=== PATIENT | male | born 1955 | race Hispanic/Latino ===

== ENCOUNTER 2018-04-21 07:21 | Emergency (ER) | payer MEDICARE, OTHER ==
[2018-04-21] MEDS ORDERED: Sodium Chloride 0.9% 1,000 ML IV STA (07:36)
--- NOTE | 2018-04-21 07:39 | ED PDOC ---
HPI: Male Pain Time Seen by Provider: 04/21/18 07:31 History Per: Patient Onset/Duration Of Symptoms: Mins (20) Current Symptoms Are (Timing): Still Present Severity: Moderate Pain Scale Rating Of: 3 Quality Of Discomfort: Aching Associated Symptoms: Nausea. denies: Fever, Vomiting, Diarrhea, Urinary Symptoms Alleviating Factors: None Additional Complaint(s): Left flank pain x 20 min [employer] ED. Denies dysuria or hematuria. No fever. Mild nausea. No vomiting. Previous h/o kidney stone. Past Medical History Vital Signs: Last Vital Signs Temp 98.0 F 04/21/18 07:31 Pulse 76 04/21/18 07:31 Resp 20 04/21/18 07:31 BP 154/89 H 04/21/18 07:31 Pulse Ox 97 04/21/18 07:31 - Medical History PMH: Back Problems, Kidney Stones - Family History Family History: States: Unknown Family Hx - Home Medications Home Medications: Ambulatory Orders Medication Instructions Recorded Sulfamethoxazole/Trimethoprim 1 tab PO BID #20 tab 04/21/18 [Bactrim DS 800 mg-160 mg] Tamsulosin [Flomax] 0.4 mg PO DAILY #5 cap 04/21/18 traMADol [Ultram] 50 mg PO Q8 #10 tab 04/21/18 - Allergies Allergies/Adverse Reactions: Allergies Allergy/AdvReac Type Severity Reaction Status Date / Time No Known Allergies Allergy Verified 04/21/18 07:36 Review of Systems Constitutional: Negative for: Fever, Chills Gastrointestinal: Positive for: Nausea Genitourinary Male: Negative for: Dysuria, Frequency, Hematuria Musculoskeletal: Positive for: Back Pain Physical Exam - Physical Exam Appears: Positive for: Non-toxic, No Acute Distress Skin: Positive for: Normal Color, Warm, DRY Gastrointestinal/Abdominal: Positive for: Bowel Sounds, Soft. Negative for: Tenderness Back: Negative for: L CVA Tenderness, R CVA Tenderness Extremity: Positive for: Normal ROM Neurologic/Psych: Positive for: Alert, Oriented - Laboratory Results Result Diagrams: 04/21/18 08:15 04/21/18 08:15 - ECG O2 Sat by Pulse Oximetry: 97 Disposition - Clinical Impression Clinical Impression: Kidney stone on left side - Patient ED Disposition Is Patient to be Admitted: No Counseled Patient/Family Regarding: Studies Performed, Diagnosis, Need For Followup, Rx Given - Disposition Referrals: Dann Hobbs MD [Medical Doctor] - Disposition: Routine/Home Disposition Time: 09:25 Condition: FAIR Prescriptions: Sulfamethoxazole/Trimethoprim [Bactrim DS 800 mg-160 mg] 1 tab PO BID #20 tab Tamsulosin [Flomax] 0.4 mg PO DAILY #5 cap traMADol [Ultram] 50 mg PO Q8 #10 tab Instructions: Kidney Stones in Adults
[2018-04-21 08:29] LABS: BASO # 0.1 K/uL (0.0-0.2); BASO % 1.2 % (0.0-2.0); EOS # 0.5 K/uL (0.0-0.7); EOS % 5.4 % (0.0-4.0); HEMOGLOBIN 15.5 g/dL (12.0-18.0); LYMPH # 2.7 K/uL (1.0-4.3); LYMPH % 30.8 % (20.0-40.0); MEAN CELL VOLUME 94.6 fl (80.0-94.0); MEAN CORPUSCULAR HEMOGLOBIN 32.5 pg (27.0-31.0); MEAN CORPUSCULAR HGB CONC 34.4 g/dL (33.0-37.0); MEAN PLATELET VOLUME 8.7 fl (7.2-11.7); MONO # 0.9 K/uL (0.0-0.8); MONO % 9.9 % (0.0-10.0); NEUT # 4.6 K/uL (1.8-7.0); NEUT % 52.7 % (50.0-75.0); RBC 4.78 Mil/uL (4.40-5.90); RED CELL DISTRIBUTION WIDTH 12.9 % (11.5-14.5); WHITE BLOOD COUNT 8.7 K/uL (4.8-10.8)
[2018-04-21 08:43] LABS: ALB/GLOB RATIO 1.4 (1.0-2.1); ALBUMIN 4.1 g/dL (3.5-5.0); ALT/SGPT 39 U/L (21-72); AST/SGOT 35 U/L (17-59); BLOOD UREA NITROGEN 15 mg/dl (9-20); CALCIUM 9.3 mg/dL (8.4-10.2); GFR AFRICAN-AMERICAN > 60; GFR NON-AFRICAN AMERICAN > 60
--- NOTE | 2018-04-21 09:19 | CT ---
PROCEDURE: CT Abdomen and Pelvis without contrast. HISTORY: r/o kidney stone COMPARISON: None. TECHNIQUE: Contiguous axial images of the abdomen and pelvis. No oral IV contrast given. Coronal and Sagittal reformats generated. Please note that due to lack of intravenous and oral contrast, evaluation of soft tissue structures and bowel is limited. Radiation dose: Total exam DLP = 694.36 mGy-cm. This CT exam was performed using one or more of the following dose reduction techniques: Automated exposure control, adjustment of the mA and/or kV according to patient size, and/or use of iterative reconstruction technique. FINDINGS: LOWER THORAX: Unremarkable. LIVER: Unremarkable. No gross lesion or ductal dilatation. GALLBLADDER AND BILE DUCTS: Unremarkable. PANCREAS: Unremarkable. No mass. No ductal dilatation. SPLEEN: Unremarkable. No splenomegaly. ADRENALS: Unremarkable. KIDNEYS AND URETERS: Punctate radiopaque calculi seen in the proximal left ureter. Minimal hydronephrosis on the left. Mild left perinephric stranding. No radiopaque calculus on the right. BLADDER: Limited evaluation due to underdistention. REPRODUCTIVE: Prostate enlargement. APPENDIX: Unremarkable. BOWEL: No bowel obstruction. Diverticulosis without evidence of diverticulitis. PERITONEUM: Unremarkable. No fluid collection. No free air. LYMPH NODES: Scattered lymph nodes along the pelvic chain. VASCULATURE: No aortic aneurysm identified. BONES: Degenerative changes in the lumbar spine. OTHER FINDINGS: Mild thickening of the distal esophagus. Upper endoscopy can be obtained as per clinical indications. Likely postsurgical changes in the right inguinal canal. IMPRESSION: 2 millimeter radiopaque calculus in the proximal left ureter with associated minimal hydronephrosis and left perinephric stranding. Underlying infection cannot be entirely excluded. Mild thickening of the distal esophagus. Upper endoscopy can be obtained as per clinical indications. Mildly enlarged prostate. Diverticulosis without evidence of diverticulitis.
[2018-04-21 09:53] VITALS: BP 149/74; PULSE 73; RESP 18; TEMP 98.2; O2SAT 99
== END 2018-04-21 09:30 | disposition home or self-care (01) ==
LOC: H.ER 07:21
DX: N13.2 Hydronephrosis with renal and ureteral calculous obstruction (principal); N40.0 Benign prostatic hyperplasia without lower urinary tract symptoms; Z87.442 Personal history of urinary calculi
CPT/HCPCS: 74176; 80053; 85025; 96361; 96374; 99284; J1885; J7030